=== PATIENT | female | born 1945 | race Caucasian/White ===

== ENCOUNTER → 2016-05-15 | Outpatient (CLI) | payer OTHER | LOC: FIMAGING 08:40 | PROVIDERS: ATTEND Obstetrics & Gynecology | DX: R92.8 Other abnormal and inconclusive findings on diagnostic imaging of breast (principal) | CPT/HCPCS: 76641; G0206; G0279 ==

== ENCOUNTER 2016-05-22 13:42 | Emergency (ER) | payer OTHER ==
[2016-05-22 14:10] VITALS: RESP 18
--- NOTE | 2016-05-22 14:35 | CPEKG ---
Heart Rate: 69 RR Interval: 870 P-R Interval: 180 QRSD Interval: 80 QT Interval: 380 QTC Interval: 407 P [place]: 72 QRS [place]: 47 T Wave [place]: 48 EKG Severity - NORMAL ECG - EKG Impression: SINUS RHYTHM Electronically Signed By: Steve Can 22-May-2016 15:37:34
--- NOTE | 2016-05-22 14:37 | EDPHY ---
H & P Stated Complaint: intermittent blurred vision/VASQUEZ since last night. transient memory loss x15m Time Seen by Provider: 05/22/16 14:06 HPI/ROS: Chief complaint: Headache, difficulty speaking HPI: 71-year-old female had a rapid onset of severe headache at about 11 o' clock this morning. Headache progressed from asymptomatic to 10/10 over the course of a few minutes. This was associated with about a 10 minutes episode of difficulty word finding and unable to express herself to her grandson. The difficulty communication resolved but the headache persisted. She took an aspirin without relief. She then took 200 mg of ibuprofen about an hour ago with complete resolution of symptoms. Patient also states that she had an episode of bilateral blurry vision watching television last night for about 30 minutes prior to going to bed. Had some nausea but no vomiting. No head injury. She has had a similar episodes to this several times in the past. She was admitted last August for the same with a diagnosis of possible TIA verses late onset atypical migraine. She had extensive workup at that time including MRIs, CT angiograms which were all unremarkable. She is currently without complaint. She does helpful have a history of mitral valve prolapse for which she is followed by Dr. Nik arredondo 0. No chest pain or shortness of breath. No fevers or chills. Currently feels completely back to normal. ROS: 10 point Review of Systems is negative except as noted in the HPI. Past medical history: Mitral valve prolapse Breast mass GERD PE TIA verses a typical migraine Past surgical history: Lumpectomy Medications: None Allergies: Acetaminophen Physical exam: Gen: Awake, Alert, No Distress HEENT: Nose: no rhinorrhea Eyes: PERRLA, EOMI Mouth: Moist mucosa Neck: Supple, no JVD Chest: nontender, lungs clear to auscultation Heart: S1, S2 normal, no murmur Abd: Soft, non-tender, no guarding Back: no CVA tenderness, no midline tenderness Ext: no edema, non-tender Skin: no rash Neuro: CN II-XII intact, Sensation grossly intact, Strength 5/5 in bilateral upper and lower extremities - Personal History Current Tetanus/Diphtheria Vaccine: Yes Current Tetanus Diphtheria and Acellular Pertussis (TDAP): Yes Tetanus Vaccine Date: 2012 - Medical/Surgical History Hx Asthma: No Hx Chronic Respiratory Disease: No Hx Diabetes: No Hx Cardiac Disease: No Hx Renal Disease: No Hx Cirrhosis: No Hx Alcoholism: No Hx HIV/AIDS: No Hx Splenectomy or Spleen Trauma: No Other PMH: PSH: t&a; R breast tumor removed;. PMH: PE; TIA - Social History Smoking Status: Never smoked Constitutional: Initial Vital Signs Temperature (C) 36.4 C 05/22/16 13:48 Heart Rate 76 05/22/16 13:48 Respiratory Rate 16 05/22/16 13:48 Blood Pressure 155/77 H 05/22/16 13:48 O2 Sat (%) 97 05/22/16 13:48 O2 Delivery Mode Room Air Allergies/Adverse Reactions: acetaminophen Allergy (Verified 05/22/16 13:47) Home Medications: Medication Instructions Recorded Aspirin [Aspirin 81mg (*)] 81 mg PO DAILY #0 tab.chew 09/20/15 Medical Decision Making - Diagnostics EKG Interpretation: EC:34 sinus rhythm, rate of 69, normal axis, normal intervals, no acute ST or T-wave changes. Impression: Normal ECG Imaging: CT brain: Atrophy, no hemorrhage. Interpreted by Dr. Montejo ED Course/Re-evaluation: 8-year-old female presenting with sudden onset of severe headache with some expressive aphasia lasting 10 minutes. Her symptoms completely resolved. She has had similar symptoms in the past with extensive workup. I am going to discuss with Neurology at this time further recommendations of any workup that they deem appropriate and Re eval. Case discussed with Dr. Hogan, neurology. He is recommending giving her significant workup with the similar symptoms last time in the factors symptoms have completely resolved that we should obtain a a noncontrast CT scan of her brain now. If that is normal and there is no evidence of acute subarachnoid hemorrhage she can be discharged home he will be happy to see her and follow-up in the clinic. I think this is an appropriate plan. CT scan has been ordered. Patient remains symptom-free. CT scan of the brain is negative. Patient is to remain symptom free. Will discharge with follow-up with Dr. Hogan with instructions return for any change in her neurologic status. - Data Points Laboratory Results: Laboratory Results 05/22/16 14:10 05/22/16 05/22/16 14:10 14:10 WBC Pending RBC Pending Hgb Pending Hct Pending MCV Pending MCH Pending MCHC Pending RDW Pending Plt Count Pending MPV Pending Neut % (Auto) Pending Lymph % (Auto) Pending [place] % (Auto) Pending Eos % (Auto) Pending Baso % (Auto) Pending Nucleat RBC Rel Count Pending Absolute Neuts (auto) Pending Absolute Lymphs (auto) Pending Absolute Monos (auto) Pending Absolute Eos (auto) Pending Absolute Basos (auto) Pending Absolute Nucleated RBC Pending Immature Gran % Pending Immature Gran # Pending Sodium 137 mEq/L mEq/L (134-144) Potassium 5.0 mEq/L mEq/L (3.3-5.0) Chloride 103 mEq/L mEq/L (97-110) Carbon Dioxide 25 mEq/l mEq/l (22-31) Anion Gap 9 mEq/L mEq/L (8-16) BUN 17 mg/dL mg/dL (7-23) Creatinine 0.6 mg/dL mg/dL (0.6-1.0) Estimated GFR > 60 Glucose 98 mg/dL mg/dL (70-100) Calcium 9.6 mg/dL mg/dL (8.5-10.4) Departure - Departure Disposition: Home, Routine, Self-Care Clinical Impression: Atypical migraine Condition: Good Instructions: Migraine Headache (ED) Additional Instructions: Follow up with Dr. Hogan, neurology in 3-4 days. Call for the next available appointment. Return to the emergency depart for increasing headache, weakness, difficulty speaking, nausea, vomiting, or any other concerns. Referrals: Maldonado Upton MD [Primary Care Provider] - As per Instructions Sotero Hogan MD [Medical Doctor] - As per Instructions NIH Stroke Scale Date of Exam: 05/22/16 Time of Exam: 14:25 Level of Consciousness: Alert LOC Questions: Answers Both LOC Commands: Performs Both Correctly Best Gaze: Normal Visual: No Visual Loss Facial Palsy: Normal Motor Arm-Left: No Drift Motor Arm-Right: No Drift Motor Leg-Left: No Drift Motor Leg-Right: No Drift Limb Ataxis: Absent Sensory: Normal Best Language: No Aphasia Dysarthria: Normal Extinction and Inattention (Neglect): No Abnormality NIH Scale Score: 0
[2016-05-22 15:00] LABS: % IMMATURE GRANULYOCYTES 0.1 % (0.0-1.1); ABSOLUTE IMMATURE GRANULOCYTES 0.01 10^3/uL (0.00-0.10); ADD DIFF? NO; ADD MORPH? NO; ADD SCAN? YES; ATYPICAL LYMPHOCYTE FLAG 10 (0-99); FRAGMENT RBC FLAG 30 (0-99); HEMATOCRIT 40.8 % (38.0-47.0); HEMOGLOBIN 13.6 g/dL (12.6-16.3); LEFT SHIFT FLG 0 (0-99); LIPEMIA HEMOLYSIS FLAG 80 (0-99); MEAN CELL HEMOGLOBIN 29.8 pg (27.9-34.1); MEAN CELL HEMOGLOBIN CONCENTR. 33.3 g/dL (32.4-36.7); MEAN CELL VOLUME 89.5 fL (81.5-99.8); PLATELET COUNT 219 10^3/uL (150-400); RED BLOOD CELL COUNT 4.56 10^6/uL (4.18-5.33); RED CELL DISTRIBUTION WIDTH 13.2 % (11.5-15.2)
[2016-05-22 15:05] LABS: ANION GAP 9 mEq/L (8-16); CALCIUM 9.6 mg/dL (8.5-10.4); CARBON DIOXIDE 25 mEq/l (22-31); CHLORIDE 103 mEq/L (97-110); CREATININE 0.6 mg/dL (0.6-1.0); GLOMERULAR FILTRATION RATE > 60; GLUCOSE 98 mg/dL (70-100); PLATELET CLUMPS FLAG 300 (0-99); SODIUM 137 mEq/L (134-144)
[2016-05-22 15:27] LABS: SCAN NEGATIVE
[2016-05-22 15:32] VITALS: BP 149/77; PULSE 84; TEMP 98.6; O2SAT 94
== END 2016-05-22 15:36 | disposition home or self-care (01) ==
DX: G43.909 Migraine, unspecified, not intractable, without status migrainosus (principal); Z79.82 Long term (current) use of aspirin

== ENCOUNTER → 2016-08-01 | Outpatient (CLI) | payer OTHER | LOC: BHFA 10:30 | PROVIDERS: ATTEND Internal Medicine Interventional Cardiology | DX: R55 Syncope and collapse (principal) ==

== ENCOUNTER → 2016-08-06 | Outpatient (CLI) | payer OTHER | LOC: BHFA 14:45 | PROVIDERS: ATTEND Internal Medicine Cardiovascular Disease | DX: R55 Syncope and collapse (principal); I34.0 Nonrheumatic mitral (valve) insufficiency; I34.9 Nonrheumatic mitral valve disorder, unspecified ==

== ENCOUNTER 2016-09-20 19:48 | Emergency (ER) | payer OTHER ==
--- NOTE | 2016-09-20 19:57 | EDPHY ---
H & P Stated Complaint: Numbness Tingling in Both Hands HPI/ROS: HPI CHIEF COMPLAINT: Tingling in both hands, low blood pressure, lightheadedness HISTORY OF PRESENT ILLNESS: This patient very pleasant 71-year-old female, significant past medical history for pulmonary embolism remotely over 19 years ago, TIA, acute aphasia, complex migraine, presents emergency room by private vehicle after she states that she became lightheaded or feeling K she was going to pass out earlier this morning. She noticed her blood pressure was somewhat low she is running 100 systolic over 40s diastolic. She states she increased fluid intake salt tablet and some Coca-Cola which increased her blood pressure and this caused her symptoms to improve. However around 130 in the afternoon she developed some low blood pressure again with tingling of her hands (70s/40s) . She states she felt very lightheaded. Denies chest pain or shortness of breath. Denies headache or neck pain. States she felt like she was going to pass out. Blood pressure gradually improved however she developed worsening tingling in bilateral hands. No arm heaviness. The tingling in her hands have state. Blood pressure improved. Past Medical History: Pulmonary embolism, TIA, acute aphasia, complex migraine Past Surgical History: No recent surgical history Social History: Denies daily use drugs alcohol tobacco products Family History: Noncontributory ROS REVIEW OF SYSTEMS: A comprehensive 10 point review of systems is otherwise negative aside from elements mentioned in the history of present illness. Exam Constitutional appears well nontoxic triage nursing summary reviewed, vital signs reviewed, awake/alert. Eyes normal conjunctivae and sclera, EOMI, PERRLA. HENT normal inspection, atraumatic, moist mucus membranes, no epistaxis, neck supple/ no meningismus, no raccoon eyes. Respiratory clear to auscultation bilaterally, normal breath sounds, no respiratory distress, no wheezing. Cardiovascular rate normal, regular rhythm, no murmur, no edema, distal pulses normal. Gastrointestinal soft, non-tender, no rebound, no guarding, normal bowel sounds, no distension, no pulsatile mass. Genitourinary no CVA tenderness. Musculoskeletal no midline vertebral tenderness, full range of motion, no calf swelling, no tenderness of extremities, no meningismus, good pulses, neurovascularly intact. Skin pink, warm, & dry, no rash, skin atraumatic. Neurologic normal neurological exam, awake, alert and oriented x 3, AAOx3, moves all 4 extremities equally, motor intact, sensory intact, CN II-XII intact , normal cerebellar, normal vision, normal speech. Psychiatric normal mood/affect. Heme/Lymph/Immune no lymphadenopathy. Differential Diagnosis: Includes but is not limited to in a particular order; orthostatic hypotension, dehydration, infection, stroke, mi. Medical Decision Making: Plan for this patient full cardiac monitor technician, IV establishment, IV fluid bolus, check electrolytes, check urinalysis, EKG, troponin, D-dimer, CT head without contrast, chest x-ray Re-evaluation: EKG interpretation by me on record in [employer] system. Impression and time of EKG , sinus rhythm rate of 61, I do not appreciate acute any ischemia. Specifically no ST elevation, ST depression or significant T-wave abnormalities. When I compare this EKG to her old EKG dated 05/22/[address] scan of the head without IV contrast. Notified by Dr. Edwards that this patient has admitted to lesion seen on the CT scan without contrast unclear etiology of this. Cyst vs infarct versus bleed. Recommend MRI brain.. The study was read by Dr. Edwards I viewed the images myself on the PACS system. 2115: I did re-evaluate this patient at this time. Resting comfortably. She still complains of lightheadedness, tingling in both hands. No neck pain. No chest pain or shortness of breath. Troponin is negative, EKG is unremarkable. Has a very low D-dimer. Doubt pulmonary embolism. She does have a PE history [address]. On her CT of her head there is a mid brain lesion that needs further characterization with an MRI. I have ordered the MRI brain. I do feel given her age, ongoing symptoms that she should be admitted for least observation possibly Neurology to see and follow up this MRI brain. I spoke with Dr. Manning who agrees to admit. Source: Patient - Personal History Current Tetanus/Diphtheria Vaccine: Yes Current Tetanus Diphtheria and Acellular Pertussis (TDAP): Yes Tetanus Vaccine Date: 2012 - Medical/Surgical History Hx Asthma: No Hx Chronic Respiratory Disease: No Hx Diabetes: No Hx Cardiac Disease: Yes Hx Renal Disease: No Hx Cirrhosis: No Hx Alcoholism: No Hx HIV/AIDS: No Hx Splenectomy or Spleen Trauma: No Other PMH: PSH: t&a; R breast tumor removed;. PMH: PE; TIA - Social History Smoking Status: Never smoked Constitutional: Initial Vital Signs Temperature (C) 36.9 C 09/20/16 19:51 Heart Rate 68 09/20/16 19:51 Respiratory Rate 14 09/20/16 19:51 Blood Pressure 172/87 H 09/20/16 19:51 O2 Sat (%) 96 09/20/16 19:51 O2 Delivery Mode Room Air Allergies/Adverse Reactions: acetaminophen Allergy (Verified 09/20/16 19:50) Home Medications: Medication Instructions Recorded Aspirin [Aspirin 81mg (*)] 81 mg PO DAILY #0 tab.chew 09/20/15 Medical Decision Making - Diagnostics Imaging Results: Imaging Impressions Head CT 09/20/16 20:16 Impression: Possible syringobulbia. Consider MRI for further evaluation. Results called to Dr. Tanner. General information for patients regarding this examination can be found at [email or web address]. If you have questions or comments about this report, please contact me at (hospital) or [phone] (cell). - Data Points Laboratory Results: Laboratory Results 09/20/16 20:10 09/20/16 20:10 09/20/16 09/20/16 09/20/16 20:10 20:10 20:10 WBC 8.15 10^3/uL 10^3/uL (3.80-9.50) RBC 4.35 10^6/uL 10^6/uL (4.18-5.33) Hgb 13.0 g/dL g/dL (12.6-16.3) Hct 39.5 % % (38.0-47.0) MCV 90.8 fL fL (81.5-99.8) MCH 29.9 pg pg (27.9-34.1) MCHC 32.9 g/dL g/dL (32.4-36.7) RDW 13.1 % % (11.5-15.2) Plt Count 251 10^3/uL 10^3/uL (150-400) MPV 10.2 fL fL (8.7-11.7) Neut % (Auto) 54.9 % % (39.3-74.2) Lymph % (Auto) 33.6 % % (15.0-45.0) [place] % (Auto) 9.0 % % (4.5-13.0) Eos % (Auto) 1.2 % % (0.6-7.6) Baso % (Auto) 1.1 % % (0.3-1.7) Nucleat RBC Rel Count 0.0 % % (0.0-0.2) Absolute Neuts (auto) 4.47 10^3/uL 10^3/uL (1.70-6.50) Absolute Lymphs (auto) 2.74 10^3/uL 10^3/uL (1.00-3.00) Absolute Monos (auto) 0.73 10^3/uL 10^3/uL (0.30-0.80) Absolute Eos (auto) 0.10 10^3/uL 10^3/uL (0.03-0.40) Absolute Basos (auto) 0.09 10^3/uL 10^3/uL (0.02-0.10) Absolute Nucleated RBC 0.00 10^3/uL 10^3/uL (0-0.01) Immature Gran % 0.2 % % (0.0-1.1) Immature Gran # 0.02 10^3/uL 10^3/uL (0.00-0.10) PT 12.8 SEC SEC (12.0-15.0) INR 0.97 (0.83-1.16) D-Dimer 0.62 ug/mLFEU H ug/mLFEU (0.00-0.50) Sodium 135 mEq/L mEq/L (134-144) Potassium 4.2 mEq/L mEq/L (3.5-5.2) Chloride 104 mEq/L mEq/L (97-110) Carbon Dioxide 20 mEq/l L mEq/l (22-31) Anion Gap 11 mEq/L mEq/L (8-16) BUN 21 mg/dL mg/dL (7-23) Creatinine 0.7 mg/dL mg/dL (0.6-1.0) Estimated GFR > 60 Glucose 134 mg/dL H mg/dL (70-100) Calcium 9.3 mg/dL mg/dL (8.5-10.4) Troponin I < 0.012 ng/mL ng/mL (0-0.034) NT-Pro-B Natriuret Pep 111 pg/mL pg/mL (0-125) Medications Given: Discontinued Medications Sodium Chloride (Ns) 1,000 mls @ 0 mls/hr IV ONCE ONE; Wide Open PRN Reason: Protocol Stop: 09/20/16 20:17 Last Admin: 09/20/16 20:33 Dose: 1,000 mls Departure - Departure Disposition: [facility] Inpatient Acute Clinical Impression: Dizziness Condition: Good Referrals: Maldonado Upton MD [Primary Care Provider] - As per Instructions
[2016-09-20] MEDS ORDERED: NS 1,000 ML IV ONE (20:16)
[2016-09-20 20:22] LABS: % IMMATURE GRANULYOCYTES 0.2 % (0.0-1.1); ABSOLUTE IMMATURE GRANULOCYTES 0.02 10^3/uL (0.00-0.10); ADD DIFF? NO; ADD MORPH? NO; ADD SCAN? NO; ATYPICAL LYMPHOCYTE FLAG 30 (0-99); FRAGMENT RBC FLAG 0 (0-99); HEMATOCRIT 39.5 % (38.0-47.0); LEFT SHIFT FLG 0 (0-99); LIPEMIA HEMOLYSIS FLAG 80 (0-99); MEAN CELL HEMOGLOBIN 29.9 pg (27.9-34.1); MEAN CELL HEMOGLOBIN CONCENTR. 32.9 g/dL (32.4-36.7); MEAN CELL VOLUME 90.8 fL (81.5-99.8); MEAN PLATELET VOLUME 10.2 fL (8.7-11.7); PLATELET CLUMPS FLAG 0 (0-99); PLATELET COUNT 251 10^3/uL (150-400); RED BLOOD CELL COUNT 4.35 10^6/uL (4.18-5.33); RED CELL DISTRIBUTION WIDTH 13.1 % (11.5-15.2)
--- NOTE | 2016-09-20 20:22 | CPEKG ---
Heart Rate: 61 RR Interval: 984 P-R Interval: 196 QRSD Interval: 92 QT Interval: 412 QTC Interval: 415 P [place]: 73 QRS [place]: 32 T Wave [place]: 44 EKG Severity - NORMAL ECG - EKG Impression: SINUS RHYTHM Electronically Signed By: Luisito Li 20-Sep-2016 23:18:32
[2016-09-20 20:33] LABS: ANION GAP 11 mEq/L (8-16); CALCIUM 9.3 mg/dL (8.5-10.4); CARBON DIOXIDE 20 mEq/l (22-31); CHLORIDE 104 mEq/L (97-110); CREATININE 0.7 mg/dL (0.6-1.0); GLOMERULAR FILTRATION RATE > 60; GLUCOSE 134 mg/dL (70-100); POTASSIUM 4.2 mEq/L (3.5-5.2); SODIUM 135 mEq/L (134-144)
[2016-09-20 20:39] LABS: INR 0.97 (0.83-1.16); PROTIME(PATIENT) 12.8 SEC (12.0-15.0)
[2016-09-20 21:04] LABS: TROPONIN I < 0.012 ng/mL (0-0.034)
[2016-09-20 21:52] LABS: COLOR COLORLESS; LEUKOCYTE ESTERASE,URINE TRACE (NEGATIVE); NITRITE,URINE NEGATIVE (NEGATIVE)
[2016-09-20 21:54] LABS: MUCUS TRACE /lpf (NONE-1+)
[2016-09-20 22:42] VITALS: RESP 16; O2SAT 95
[2016-09-20] MEDS ORDERED: IOPAMIDOL (ISOVUE 370) 100 ML BTL IV ONE (23:10)
--- NOTE | 2016-09-20 23:10 | GCON ---
[f rep st] CONSULTATION HOSPITALIST CONSULTATION DATE OF CONSULTATION: 09/20/2016 REFERRING PHYSICIAN: Luisito Li MD REASON FOR CONSULTATION: Dizziness and hand numbness. HISTORY OF PRESENT ILLNESS: This is a 71-year-old female with history of episodic hypotension, mitr al valve prolapse, and spells of memory loss attributed to possible TIAs, as well as PE, who present ed to the emergency department today with dizziness. The dizziness was described as is feeling off- balance and "drunk." This was associated with some numbness in both of her hands. She denies any h yperventilation or anxiety. During this episode, she was diligently measuring her blood pressure an d found it to be as low as 80 systolic over 40s. She denies any syncope. She denies any chest pain . She denies any urinary complaints. She denies any fevers or chills. She has maintained adequate hydration and has been drinking water and Gatorade throughout the day. She also took some salt tab lets which Dr. Upton recommended when her blood pressure was low in the afternoon. PAST MEDICAL HISTORY: 1. Episodic hypotension. 2. Mitral valve prolapse. 3. PE diagnosed 19 years ago. 4. Episodic memory loss due to TIA versus complex migraine. HOME MEDICATIONS: Reviewed. Refer to [employer] for details. ALLERGIES: Tylenol. SOCIAL HISTORY: She lives with her . She denies any alcohol, tobacco, or illicit drug use. FAMILY HISTORY: Reviewed and noncontributory. REVIEW OF SYSTEMS: Comprehensive 10-point review of systems was done and is negative, except for as mentioned in the HPI. PHYSICAL EXAMINATION: VITAL SIGNS: Blood pressure 144/69, pulse 65, respiratory rate 18, O2 satura tion 99% on room air, temperature afebrile. GENERAL: No acute distress. HEAD: Normocephalic atra umatic. EYES: PERRLA. Sclerae anicteric. NECK: Supple. No lymphadenopathy. CARDIOVASCULAR: S 1, S2. No JVD. No lower extremity edema. No murmurs or rubs. No clicks or gallops. LUNGS: Adriana r. No wheezes, rales, or rhonchi. ABDOMEN: Soft, nontender, nondistended. No guarding or rebound tenderness. Normoactive bowel sounds. EXTREMITIES: No clubbing or cyanosis. NEURO: Cranial ner ves 2-12 grossly intact. No focal motor or sensory deficits. Face is symmetric. There is no prona tor drift. SKIN: Clear. No rashes. Normal turgor. DIAGNOSTICS: WBC is 8.1, hemoglobin 13, hematocrit 39.5, platelets 251. D-dimer was 0.62. Sodium 135, potassium 4.2, chloride 104, CO2 is 20, BUN 21, creatinine 0.7, glucose 134. UA: Trace leukoc yte esterase. EKG, which I visualized and personally interpreted: Sinus rhythm, rate 61 beats per minute. There is no ST-segment elevation, depression. There are no Q waves. Head CT shows a possible syringobulb ia. Dr. Edwards recommended MRI for further evaluation. Chest x-ray was negative. ASSESSMENT AND PLAN: This is a 71-year-old female presenting with: 1. Disequilibrium in the setting of hypotension with numbness in both hands. Plan: I suspect her symptoms were not neurologic in etiology and most likely related to her hypotension. She is current ly asymptomatic. MRI has been ordered by Dr. Li which is reasonable to further follow up the a bnormal findings on her head CT. I offered observation care in the hospital which the patient refus ed. She would prefer to have the MRI done in the ER and go home if the results did not require any immediate intervention, which I think is reasonable. 2. Elevated D-dimer without any clear symptoms of pulmonary embolism in a patient who is normotensi ve with a room air saturation of 99% and heart rate of 65. Plan: My suspicion for PE is fairly low . She does have a history of PE 19 years ago. Will defer further workup at this time unless she de velops signs and symptoms of PE. /[id number]/MODL
--- NOTE | 2016-09-20 23:43 | CPEKG ---
Heart Rate: 61 RR Interval: 984 P-R Interval: 208 QRSD Interval: 90 QT Interval: 408 QTC Interval: 411 P [place]: 70 QRS [place]: 40 T Wave [place]: 35 EKG Severity - NORMAL ECG - EKG Impression: SINUS RHYTHM Electronically Signed By: Dionicio Tello 21-Sep-2016 10:51:07
[2016-09-21 01:15] VITALS: BP 130/63; PULSE 64; TEMP 98.2
== END 2016-09-21 01:15 | disposition still patient (30) ==
LOC: UNDOADMIN 21:15
DX: R42 Dizziness and giddiness (principal); Z79.82 Long term (current) use of aspirin
CPT/HCPCS: Q9967

== ENCOUNTER → 2016-12-20 | Outpatient (CLI) | payer OTHER | LOC: FIMAGING 12:12 | PROVIDERS: ATTEND Internal Medicine | DX: Z12.31 Encounter for screening mammogram for malignant neoplasm of breast (principal) | CPT/HCPCS: G0202 ==

== ENCOUNTER → 2017-04-10 | Outpatient (CLI) | payer OTHER | LOC: FIMAGING 10:02 | PROVIDERS: ATTEND Internal Medicine | DX: R10.13 Epigastric pain (principal) ==

== ENCOUNTER → 2017-07-23 | Outpatient (CLI) | payer OTHER | LOC: FIMAGING 11:15 | PROVIDERS: ATTEND Internal Medicine | DX: J45.909 Unspecified asthma, uncomplicated (principal); J84.10 Pulmonary fibrosis, unspecified; M48.54XA Collapsed vertebra, not elsewhere classified, thoracic region, initial encounter for fracture ==

== ENCOUNTER → 2017-11-13 | Outpatient (CLI) | payer OTHER | DX: N63.11 Unspecified lump in the right breast, upper outer quadrant (principal) ==

== ENCOUNTER → 2017-12-23 | Outpatient (CLI) | payer OTHER | LOC: FIMAGING 08:43 | PROVIDERS: ATTEND Internal Medicine | DX: Z12.31 Encounter for screening mammogram for malignant neoplasm of breast (principal) ==

== ENCOUNTER → 2017-12-24 | Outpatient (CLI) | payer OTHER | LOC: FIMAGING 08:45 | PROVIDERS: ATTEND Internal Medicine | DX: D25.9 Leiomyoma of uterus, unspecified (principal); R93.5 Abnormal findings on diagnostic imaging of other abdominal regions, including retroperitoneum ==

== ENCOUNTER 2018-03-23 13:36 | Emergency (ER) | payer OTHER ==
--- NOTE | 2018-03-23 14:02 | EDPHY ---
H & P Stated Complaint: LLE pain Time Seen by Provider: 03/23/18 13:44 HPI/ROS: CHIEF COMPLAINT: Left medial thigh pain last evening HISTORY OF PRESENT ILLNESS: 73-year-old female with remote history of pulmonary embolus 1993 for which she received warfarin anticoagulation, awoke last evening with left medial thigh pain which has now by enlarged resolved after consuming an oral aspirin. No alleviating nor exacerbating variables. She is concerned about possible DVT in lower extremity. No history of trauma. No back pain. No incontinence. No retention. No saddle anesthesia. No dyspnea. No discoloration. No rash. No foot drop. PRIMARY CARE PROVIDER:Dr. Maldonado Upton REVIEW OF SYSTEMS: 10 systems reviewed and negative with the exception of the elements mentioned in the history of present illness PAST MEDICAL & SURGICAL HISTORY: Pulmonary embolus 1993 believed to be secondary to steroid use at that time time which was secondary to lumbar disc herniation at that time. SOCIAL HISTORY: nonsmoker. No drug use. PHYSICAL EXAM (Prior to examination, patient consented to physical exam, hands were washed and my usual and customary physical exam procedures followed) 1) GENERAL: Well-developed, well-nourished, alert and oriented. Appears to be in no acute distress. Smiling, appears quite well. 2) HEAD: Normocephalic, atraumatic 3) HEENT: Pupils equal, round, reactive to light bilaterally. Sclera anicteric. 4) NECK: Full range of motion, no meningeal signs. 5) LUNGS: Clear auscultation bilaterally, no wheezes, no rhonchi, no retractions. 6) HEART: Regular rate and rhythm, no murmur, no heave, no gallop. 7) ABDOMEN: No guarding, no rebound, no focal tenderness, negative McBurney's, negative Williamson's, negative Rovsing's, negative peritoneal sign, 8) MUSCULOSKELETAL: Moving all extremities, no focal areas of tenderness, no obvious trauma. No peripheral edema or discoloration. Patella Achilles reflexes equal bilaterally strength 5/5. No visual abnormality of the left lower extremity, no lesions no vesicles. Soft compartments. No tenderness to palpation. No erythema. DP PT pulses present and brisk distally. Full range of motion which does not elicit pain of left lower extremity including axial loading of the left acetabulum well. Full pain-free active range of motion. 9) BACK: No CVA tenderness, no midline vertebral tenderness, no fluctuance, no step-off, no obvious trauma, no visual or palpable abnormality. 10) SKIN: No rash, no petechiae. 11) Psychiatric: Patient is oriented X 3, there is no agitation. DIFFERENTIAL DIAGNOSIS: In no particular order, including but not limited to, fracture, sprain/strain, cauda equina, spinal infectious etiology. - Personal History Current Tetanus/Diphtheria Vaccine: Yes Current Tetanus Diphtheria and Acellular Pertussis (TDAP): Yes Tetanus Vaccine Date: 2012 - Medical/Surgical History Hx Asthma: No Hx Chronic Respiratory Disease: No Hx Diabetes: No Hx Cardiac Disease: Yes Hx Renal Disease: No Hx Cirrhosis: No Hx Alcoholism: No Hx HIV/AIDS: No Hx Splenectomy or Spleen Trauma: No Other PMH: PSH: t&a; R breast tumor removed;. PMH: PE; TIA - Social History Smoking Status: Never smoked Constitutional: Initial Vital Signs Temperature (C) 36.3 C 03/23/18 13:40 Heart Rate 83 03/23/18 13:40 Respiratory Rate 16 03/23/18 13:40 Blood Pressure 116/78 03/23/18 13:40 O2 Sat (%) 97 03/23/18 13:40 O2 Delivery Mode Room Air Allergies/Adverse Reactions: acetaminophen Allergy (Verified 03/23/18 13:40) Home Medications: Medication Instructions Recorded Aspirin EC [Aspirin EC 325 mg (*)] 325 - 650 mg PO DAILY PRN 09/20/16 Medical Decision Making - Diagnostics Imaging Results: Imaging Impressions Extremity Venous Study 03/23/18 13:51 Impression: No deep venous thrombosis in the left lower extremity. Findings discussed with Levar Peace PAC at 15:06 hour, 03/23/2018. Images reviewed myself ED Course/Re-evaluation: 3:08 p.m.: Lower extremity ultrasound negative for DVT. Patient has been re- evaluated with serial exams. Discussed her left lower extremity ultrasound is negative for DVT. She remains neurovascularly intact with no evidence of cellulitis, zoster, compartment syndrome. Discussed possible etiologies including, but not limited to, early presentation of zoster, lumbar radiculopathy. Doubt compartment syndrome. At this time I do not think that MRI of the lumbar spine indicated. At this time I do not think that antiviral therapy indicated she has no clinical evidence of zoster however should she develop lesions to her skin recommend she he seek immediate medical attention. She feels comfortable with this plan. Care of patient under supervision of primary supervising physician Dr Silva with whom I discussed case. Departure - Departure Disposition: Home, Routine, Self-Care Clinical Impression: Leg pain, left Condition: Good Instructions: Leg Pain (ED) Additional Instructions: Return to emergency department if you develop rash, increase in pain, discoloration, back pain, incontinence, retention numbness around your vagina, or any other symptoms that concern you. Referrals: Maldonado Upton MD [Primary Care Provider] - 2-3 days, call for appt.
[2018-03-23 15:20] VITALS: BP 118/78
== END 2018-03-23 15:19 | disposition home or self-care (01) ==
DX: M79.652 Pain in left thigh (principal)

== ENCOUNTER → 2018-04-21 | Outpatient (CLI) | payer OTHER ==
[~2018-04-21] MED LIST: GADOBUTROL 10 ML VIAL IVP ONE
== END ==
LOC: FIMAGING 07:10
PROVIDERS: ATTEND Internal Medicine Interventional Cardiology
DX: R41.3 Other amnesia (principal); R47.1 Dysarthria and anarthria
CPT/HCPCS: 70553; A9585; 82565-PO

== ENCOUNTER 2018-09-01 15:37 | Emergency (ER) | payer OTHER | END 2018-09-01 17:30 | disposition home or self-care (01) ==